=== PATIENT | male | born 1955 | race Caucasian/White ===

== ENCOUNTER 2020-09-11 15:59 | Emergency (ER) | payer MEDICARE, MEDICAID ==
[~2020-09-11] VITALS: Ht 170.2 cm; Wt 67.0 kg
--- NOTE | 2020-09-11 16:10 | NUR ---
JOCELYN POPE FROM [facility] WITH SITTER. PT NEEDS COLOSTOMY SUPPLIES. PER [facility] SITTER, PT WILL NOT BE ACCEPTED BACK TO [facility]. PT DOES NOT KEEP COLOSTOMY BAG ON. PT STATES HE IS "NASREEN HOWARD JR". PT CONNECTED TO MONITORING. CALL LIGHT IN REACH. COLOSTOMY SUPPLIES ORDERED.
--- NOTE | 2020-09-11 17:26 | NUR ---
[place] brewer in [facility] - 09/11/20 at 1824 by HRUSSELLSilvano ANNABELLE GUILLAUME TO CONTINUE LEGAL HOLD.
--- NOTE | 2020-09-11 18:24 | NUR ---
DIET TRAY DELIVERED. PT TO BE ADMIT FOR OSTOMY CARE.
[2020-09-11] MEDS ORDERED: SODIUM CHLORIDE FLUSH 10ML SYR IVF ONE (18:30)
--- NOTE | 2020-09-11 18:31 | NUR ---
PT UPDATED ON POC. [place] SITTER IS NOT LONGER NEEDED AND WENT BACK TO [place].
--- NOTE | 2020-09-11 18:51 | NUR ---
CALL TO SAMANTA MANAGER [employer] AT [facility]. PER SAMANTA NO FURTHER EXTENSION ON HOLD SO EXPIRES TODAY. ASKED IF SHE WOULD ACCEPT PT BACK IF PT WAS SENT FOR CORRECT AND AMPLE COLOSTOMY SUPPLIES. SAMANTA SAID SHE WOULD CALL ME BACK WITH THE ANSWER TO THAT QUESTION. EXPLAINED THAT I WOULD BE LEAVING AND SHE WILL SPEAK WITH KAYLIN.
--- NOTE | 2020-09-11 18:58 | NUR ---
SAMANTA AT [facility] STATES THEY WILL NOT TAKE PT BACK. SHE DOES SAY SHE WILL ATTEMPT TO SEE IF [facility] WILL TAKE HIM
--- NOTE | 2020-09-11 18:59 | NUR ---
REPORT GIVEN TO LORENA URBINA.
[2020-09-11 19:14] LABS: ALANINE AMINOTRANSFERASE 14 U/L (12-78); ALBUMIN 2.8 g/dL (3.4-5.0); ANION GAP 6 mmol/L (5-15); BASOPHILS % (AUTO) 1 % (0-1); CALCIUM 8.4 mg/dL (8.5-10.1); CHLORIDE 106 mmol/L (98-107); EOSINOPHILS % (AUTO) 4 % (1-7); LYMPHOCYTES % (AUTO) 17 % (22-44); MEAN CORPUSCULAR HEMOGLOBIN 25.4 pg (27.5-34.5); MEAN CORPUSCULAR HGB CONC 31.6 g/dL (33.2-36.2); MEAN PLATELET VOLUME 7.1 fL (7.4-10.4); MONOCYTES % (AUTO) 9 % (2-9); NEUTROPHILS % (AUTO) 70 % (42-75); PLATELET COUNT 461 x10^3/uL (130-400); RED BLOOD COUNT 4.12 x10^6/uL (4.38-5.82); RED CELL DISTRIBUTION WIDTH 19.2 % (9.4-14.8)
[2020-09-11 19:17] LABS: ALKALINE PHOSPHATASE 105 U/L (45-117); BILIRUBIN,TOTAL 0.3 mg/dL (0.2-1.0); CREATININE 0.75 mg/dL (0.7-1.3); TOTAL PROTEIN 7.6 g/dL (6.4-8.2)
[2020-09-11 20:07] LABS: ANISOCYTOSIS 1+
[2020-09-11 20:08] LABS: <PLATELET ESTIMATE> INCREASED; HYPOCHROMIA 1+; MICROCYTOSIS 1+; OVALOCYTES 1+; POLYCHROMASIA 1+; TEAR DROPS 1+
[2020-09-11 20:09] LABS: <PLT MORPHOLOGY> NORMAL PLT MORPH
--- NOTE | 2020-09-11 21:03 | NUR ---
PT PROVIDED SNACKS AND WATER PER PT REQUEST
--- NOTE | 2020-09-11 22:05 | NUR ---
PT RESTING ON GURNEY, WATCHING TV. RESPIRATIONS EVEN AND UNLABORED
--- NOTE | 2020-09-12 | NUR ---
PT MOVED TO HOSPITAL BED. PT COLOSTOMY BAG IS CLEAN DRY AND INTACT. PT PROVIDED SUPPLIES FOR COLOSTOMY BAG AND HE HAS BEEN ABLE TO MAINTAIN BAG ON HIS OWN WITHOUT HELP. PT INSTRUCTED WHERE TO DISCARD WASTE AND HE VERBALIZES UNDERSTANDING. PT INSTRUCTED HOW TO KEEP ROOM CLEAN AND HER VERBALIZES UNDERSTANDING. WATER PORVIDED AND EDUCATED ON MEAL TIMES, PT KEEPS ASKING FOR MORE FOOD.
--- NOTE | 2020-09-12 03:03 | NUR ---
PT RESTING ON GURNEY. TV ON. RESPIRATIONS EVEN AND UNLABORED.
--- NOTE | 2020-09-12 06:32 | NUR ---
pt changed colostomy bag independently.
--- NOTE | 2020-09-12 06:55 | NUR ---
First contact with pt, tried to update pt on POC pt states "Ihave the legal right to stay right here in this hospital as long as i want". POC-director social service consult/case management. Breakfast tray ordered for pt. pt in hospital bed.
--- NOTE | 2020-09-12 07:30 | NUR ---
Left voicemail for yelena, social welfare administrator to consult re: this pt.
--- NOTE | 2020-09-12 08:46 | NUR ---
Waiting for social science instructor.
--- NOTE | 2020-09-12 09:27 | NUR ---
Pt given breakfast, consult with dr chapa, gregoria jaramillo pt remains on legal hold per DA's office. Currently Dr chapa/social media project manager trying to arrange proper placement for pt.
--- NOTE | 2020-09-12 09:46 | NUR ---
ASSUMING CARE OF PT. PT RESTING IN BED. SAFETY PRECAUTIONS IN PLACE. KATERINEN.
[2020-09-12 09:48] VITALS: BP 111/58
--- NOTE | 2020-09-12 10:07 | NUR ---
THROUGH PUT RN: SPOKE WITH MANUEL AT [facility]. PT WILL BE A NEW ADMISSION FOR THEM "BECAUSE WE DISCHARGED HIM" [facility] WILL NEED TO REVIEW WITH THE MD AND OBTAIN ORDERS. DR PEÑA NOTES FAXED TO [facility]. FAX CONFIRMATION RECEIVED.
--- NOTE | 2020-09-12 10:10 | NUR ---
PT RESTING IN BED WITH SITTER AT BEDSIDE. RJ. PT TO TRANSFER BACK TO [facility] TODAY.
--- NOTE | 2020-09-12 10:10 | NUR ---
OSTOMY SUPPLIES ORDERED AND RECIEVED FOR PTS D/C
--- NOTE | 2020-09-12 11:30 | NUR ---
PT ASLEEP WITH EVEN AND UNLABORED RESPIRATIONS. SITTER AT BEDSIDE. SAFETY PRECAUTIONS IN PLACE. KATERINEN.
--- NOTE | 2020-09-12 11:40 | NUR ---
CALL FROM JEISON URBINA AT [facility]. JEISON UPDATED ON PT AND GIVEN REPORT.
--- NOTE | 2020-09-12 12:32 | NUR ---
PT PROVIDED WITH LUNCH TRAY. NADN. SITTER AT BEDSIDE. SAFETY PRECAUTIONS IN PLACE.
--- NOTE | 2020-09-12 13:43 | NUR ---
PT D/C BACK TO [place] [facility]IA [facility] AND WITH EMS.
== END 2020-09-12 13:46 ==
LOC: ED 16:38 → EDIP 18:29 → EDBD 18:29 → UNDOADMIN 18:29
DX: K94.03 Colostomy malfunction (principal); F20.9 Schizophrenia, unspecified; R07.89 Other chest pain
CPT/HCPCS: 36415; 71045; 80053; 85025; 99285